=== PATIENT | male | born 1965 | race American Indian/Alaskan Native ===

== ENCOUNTER 2021-06-11 12:36 | Emergency (ER) | payer SELFPAY ==
--- NOTE | 2021-06-11 13:52 | Emergency Department Report ---
ED Back Pain/Injury HPI - General Chief Complaint: Back Pain/Injury Stated Complaint: ACUTE ON CHRONIC BACK PAIN Time Seen by Provider: 06/11/21 13:50 Source: patient, EMS Limitations: No Limitations - History of Present Illness Initial Comments: 55-year-old -[place] male presents to the emergency room for acute on chronic back pain. Patient reports he went to the [facility] emergency room on Friday they discharged him on gabapentin and told him to follow-up with a primary care provider. Patient returns here to the emergency room and states that he had called the [facility] nurse and they told him he needs to follow-up in the emergency room therefore patient presents here. Patient is sitting comfortably in a chair with a backpack on his back. Patient states he has not taken anything for his pain. He denies any injury. He does admit to having a history of chronic back pain and was followed by a pain management provider where he was placed on oxycodone Percocet had nerve stimulator in his back. Patient denies any urinary incontinence or fecal incontinent. Denies any fever no chills. No unintentional weight loss not a IV drug user. [facility] [place] -: year(s) Similar Symptoms Previously: Yes Severity scale (0 -10): 7 Quality: sharp Consistency: constant Improves With: none Worsens With: none Associated Symptoms: denies other symptoms Treatments Prior to Arrival: other medications ([facility] the [facility]) ED Review of Systems ROS: Stated complaint: ACUTE ON CHRONIC BACK PAIN Other details as noted in HPI Comment: All other systems reviewed and negative ED Physical Exam - General Limitations: No Limitations General appearance: alert, in no apparent distress - Head Head exam: Present: atraumatic, normocephalic - Eye Eye exam: Present: normal appearance - ENT ENT exam: Present: mucous membranes moist - Neck Neck exam: Present: normal inspection - Respiratory Respiratory exam: Present: normal lung sounds bilaterally. Absent: respiratory distress - Cardiovascular Cardiovascular Exam: Present: regular rate, normal rhythm. Absent: systolic murmur, diastolic murmur, rubs, gallop - GI/Abdominal GI/Abdominal exam: Present: soft, normal bowel sounds - Rectal Rectal exam: Present: deferred - Extremities Exam Extremities exam: Present: normal inspection - Back Exam Back exam: Present: normal inspection - Neurological Exam Neurological exam: Present: alert, oriented X3 - Psychiatric Psychiatric exam: Present: normal affect, normal mood - Skin Skin exam: Present: warm, dry, intact, normal color. Absent: rash ED Medical Decision Making - Medical Decision Making 55-year-old -[place] male presents to the emergency room for acute on chronic back pain. Patient reports he went to the [facility] emergency room on Friday they discharged him on gabapentin and told him to follow-up with a primary care provider. Patient returns here to the emergency room and states that he had called the [facility] nurse and they told him he needs to follow-up in the emergency room therefore patient presents here. Patient is sitting comfortably in a chair with a backpack on his back. Patient states he has not taken anything for his pain. He denies any injury. He does admit to having a history of chronic back pain and was followed by a pain management provider where he was placed on oxycodone Percocet had nerve stimulator in his back. Patient denies any urinary incontinence or fecal incontinent. Denies any fever no chills. No unintentional weight loss not a IV drug user. [facility] [place] Patient will be referred to a back specialist and a primary care provider. Patient can take ibuprofen or Tylenol for pain. Continue with the gabapentin that was given to him by the ER from the [place]. Provider contacted Dr. Etienne Kaur neurosurgeon he will get him in the office next week. Critical care attestation.: If time is entered above; I have spent that time in minutes in the direct care of this critically ill patient, excluding procedure time. ED Disposition Clinical Impression: Chronic back pain greater than 3 months duration Disposition: HOME / SELF CARE / HOMELESS Is pt being admited?: No Does the pt Need Aspirin: No Condition: Stable Instructions: Chronic Back Pain, [id number] Additional Instructions: Recommend to follow-up with the pain management provider and a primary care provider. Referrals: ETIENNE KAUR II, MD [Staff Physician] - 3-5 Days DASHA GLYNN MD [Staff Physician] - 3-5 Days Time of Disposition: 14:08
[2021-06-11 14:10] VITALS: BP 133/87
== END 2021-06-11 16:13 | disposition home or self-care (01) ==
LOC: ED 12:36
DX: G89.29 Other chronic pain (principal)
CPT/HCPCS: 99283